=== PATIENT | male | born 1950 | race African-American/Black ===

== ENCOUNTER 2016-09-22 18:26 | Inpatient (IN) | payer MEDICARE, MEDICAID ==
--- NOTE | 2016-09-22 18:38 | ER Document Report ---
ED General - General Mode of Arrival: Ambulatory Information source: Patient - HPI Onset: Other - Refer to HPI notes Associated symptoms: Fever Similar symptoms previously: No Recently seen / treated by doctor: No <SOLOMON MCCOLLUM - Last Filed: 09/22/16 20:44> <THELMA NASH - Last Filed: 09/28/16 12:17> - General Stated Complaint: POSSIBLE ABSCESS Time Seen by Provider: 09/22/16 18:31 Notes: Patient is a 66 year old male presenting to the ED for a possible infection or abscess and fever. Patient noticed the area x1 week ago. Patient first noticed the pain to his upper back while he was sleeping and then the patient states it became painful to lay on his back. Today the patient states his pain was worse so he called 911. EMS states the patient was febrile at 108 F and had tachycardia. Patient was given 500 mL NS and some Tylenol for the pain. Patient denies any history of abscess or other skin problems. Patient has a history of hypertension and hypercholesterolemia. PCP Dr. Kim (SOLOMON MCCOLLUM) - Related Data Allergies/Adverse Reactions: No Known Allergies Allergy (Verified 09/26/16 16:32) Past Medical History - General Information source: Patient - Social History Smoking Status: Never Smoker Cigarette use (# per day): No Chew tobacco use (# tins/day): No Smoking Education Provided: No Frequency of alcohol use: None Drug Abuse: None Family History: None Patient has suicidal ideation: No Patient has homicidal ideation: No - Past Medical History Cardiac Medical History: Reports: Hx Hypercholesterolemia, Hx Hypertension Surgical Hx: Negative <SOLOMON MCCOLLUM - Last Filed: 09/22/16 20:44> Review of Systems - Review of Systems Constitutional: See HPI, Fever EENT: No symptoms reported Cardiovascular: No symptoms reported Respiratory: No symptoms reported Gastrointestinal: No symptoms reported Genitourinary: No symptoms reported Male Genitourinary: No symptoms reported Musculoskeletal: No symptoms reported Skin: See HPI Hematologic/Lymphatic: No symptoms reported Neurological/Psychological: No symptoms reported -: Yes All other systems reviewed and negative <SOLOMON MCCOLLUM - Last Filed: 09/22/16 20:44> Physical Exam <SOLOMON MCCOLLUM - Last Filed: 09/22/16 20:44> <THELMA NASH - Last Filed: 09/28/16 12:17> - Vital signs Vitals: Resp Pulse Ox 18 97 09/22/16 18:44 09/22/16 18:44 Resp Pulse Ox 18 97 09/22/16 18:44 09/22/16 18:44 (SOLOMON MCCOLLUM) - Notes Notes: GENERAL: Alert, interacts well. Mild distress. HEAD: Normocephalic, atraumatic. EYES: Appear normal. Pupils equal, round, and reactive to light. ENT: Moist mucus membranes, tongue midline. NECK: Full range of motion. Supple. Trachea midline. LUNGS: Clear to auscultation bilaterally, no wheezes, rales, or rhonchi. No respiratory distress. HEART: Regular rate and rhythm. No murmurs, gallops, or rubs. ABDOMEN: Soft, non-tender. Non-distended. Normal bowel sounds. EXTREMITIES: Moves all 4 extremities spontaneously. Normal strength. No edema. NEUROLOGICAL: Alert and oriented x3. Normal speech. No focal neurological deficits. GSC 15. PSYCH: Normal affect, normal mood. SKIN: Warm, dry, normal turgor. Large submassive abscess to the posterior back measuring 12 cm x 8 cm; there is some drainage and it extends deeply. (SOLOMON MCCOLLUM) Course - Laboratory Result Diagrams: 09/22/16 18:40 09/22/16 18:40 - Consults Dr. Jimenez Time consulted: 18:47 Consulted provider: will come to ER <SOLOMON MCCOLLUM - Last Filed: 09/22/16 20:44> - Laboratory Result Diagrams: 09/25/16 06:29 09/25/16 06:29 <THELMA NASH - Last Filed: 09/28/16 12:17> - Re-evaluation Re-evalutation: 09/22/16 19:15 Patient presents emergency department with a large abscess to his posterior back area. Which measures 12 x 8 cm. He says he noticed it when he leaned back about a week ago and has gotten progressively worse. He is febrile today and tachycardic. He has a submassive abscess with a little bit of drainage and extends deep wide and thick. Blood pressure on arrival is in the mid to high 90s. Covered him with vancomycin per surgery surgery came down I did a consult within 15 minutes of arrival and is consenting him to take him to the operating room. Patient received 2 L of fluids pain medication antibiotics laboratory evaluation workup IV fluids and the surgeon wants him to be placed observation on the surgical floor. (THELMA NASH) - Vital Signs Vital signs: Temp Pulse Resp BP Pulse Ox 98.4 F 89 16 125/86 H 98 09/25/16 16:00 09/25/16 16:00 09/25/16 16:00 09/25/16 16:00 09/25/16 16:00 - Laboratory Laboratory results interpreted by me: 09/22/16 09/22/16 09/22/16 18:40 18:40 18:40 WBC 16.0 H RBC 4.25 L Hgb 12.1 L Hct 37.5 L Seg Neutrophils % 83.0 H Lymphocytes % 5.3 L Absolute Neutrophils 13.3 H Absolute Monocytes 1.7 H VBG pH 7.43 H VBG HCO3 32.5 H Sodium 136.6 L Potassium 3.3 L Chloride 96 L Carbon Dioxide 31 H Glucose 173 H Albumin 3.4 L Urine Protein Urine Blood Urine Urobilinogen Urine Ascorbic Acid 09/22/16 19:34 WBC RBC Hgb Hct Seg Neutrophils % Lymphocytes % Absolute Neutrophils Absolute Monocytes VBG pH VBG HCO3 Sodium Potassium Chloride Carbon Dioxide Glucose Albumin Urine Protein 30 H Urine Blood MODERATE H Urine Urobilinogen 4.0 H Urine Ascorbic Acid 40 H - EKG Interpretation by Me Additional EKG results interpreted by me: 09/22/16 19:17 EKG interpreted by myself to reveal normal sinus rhythm at 97 bpm for left ventricular hypertrophy. He does have less than [address] elevation in lead to with no reciprocal changes anteriorly. I do not feel this is an acute OK. Patient is also not complaining of chest pain shortness of breath. (THELMA NASH) - Consults Dr. Jimenez Reason for consultation: 09/22/16 18:[address] Jimenez, he will come evaluate the patient. 09/22/16 19:[address] Jimenez after he evaluated the patient; he will take the patient to the OR for surgery. (SOLOMON MCCOLLUM) Critical Care Note - Critical Care Note Total time excluding time spent on procedures (mins): 45 <THELMA NASH - Last Filed: 09/28/16 12:17> Discharge <SOLOMON MCCOLLUM - Last Filed: 09/22/16 20:44> - Discharge Admitting Provider: Surgicalist Unit Admitted: Surgical Floor <THELMA NAHS - Last Filed: 09/28/16 12:17> - Discharge Clinical Impression: Acute large infected abscess back Condition: Stable Disposition: ADMITTED OBSERVATION Scribe Attestation: 09/22/16 19:14 I personally performed the services described in the documentation reviewed the documentation recorded by my scribe in my presence and it accurately and completely records my words and actions (THELMA NASH) Scribe Documentation - Scribe Written by Scribe:: Aliza Leach 09/22/2016 20:00 acting as scribe for :: Eliezer <SOLOMON MCCOLLUM - Last Filed: 09/22/16 20:44>
[2016-09-22 18:52] LABS: ABSOLUTE BASOPHILS # (AUTO) 0.1 10^3/uL (0.0-0.2); ABSOLUTE LYMPHOCYTES (AUTO) 0.9 10^3/uL (0.5-4.7); ABSOLUTE MONOCYTES (AUTO) 1.7 10^3/uL (0.1-1.4); ABSOLUTE NEUT (AUTO) 13.3 10^3/uL (1.7-8.2); BASOPHILS % (AUTO) 0.5 % (0-2); EOSINOPHILS % (AUTO) 0.3 % (0-6); HEMATOCRIT 37.5 % (37.9-51.0); HEMOGLOBIN 12.1 g/dL (13.5-17.0); HGB HCT DIFFERENCE -1.2; LYMPHOCYTES % (AUTO) 5.3 % (13-45); MEAN CORPUSCULAR HEMOGLOBIN 28.6 pg (27.0-33.4); MEAN CORPUSCULAR HGB CONC 32.4 g/dL (32.0-36.0); MEAN CORPUSCULAR VOLUME 88 fl (80-97); MONOCYTES % (AUTO) 10.9 % (3-13); RED BLOOD COUNT 4.25 10^6/uL (4.35-5.55); RED CELL DISTRIBUTION WIDTH 12.8 % (11.5-14.0)
[2016-09-22 18:58] LABS: PROTHROMBIN TIME 14.8 SEC (11.4-15.4)
[2016-09-22 19:00] LABS: VENOUS BLOOD BASE EXCESS 6.8 mmol/L; VENOUS BLOOD HCO3 32.5 mmol/L (20-32); VENOUS BLOOD PCO2 49.8 mmHg (35-63); VENOUS BLOOD PH 7.43 (7.30-7.42)
[2016-09-22] MEDS ORDERED: VANCOMYCIN HCL INJ 1000 MG VIAL IV ONE (19:12)
[2016-09-22 19:13] LABS: ALANINE AMINOTRANSFERASE 52 U/L (21-72); ALBUMIN 3.4 g/dL (3.5-5.0); ALKALINE PHOSPHATASE 110 U/L (38-126); ANION GAP 10 (5-19); ASPARTATE AMINO TRANSFERASE 30 U/L (17-59); BILIRUBIN,DIRECT 0.4 mg/dL (0.0-0.4); BILIRUBIN,TOTAL 1.3 mg/dL (0.2-1.3); BLOOD UREA NITROGEN 18 mg/dL (7-20); CARBON DIOXIDE 31 mmol/L (22-30); CHLORIDE 96 mmol/L (98-107); CREATININE RESULT 1.01 mg/dL (0.52-1.25); GLUCOSE 173 mg/dL (75-110); POTASSIUM 3.3 mmol/L (3.6-5.0); SODIUM 136.6 mmol/L (137-145); TOTAL PROTEIN 6.7 g/dL (6.3-8.2)
[2016-09-22] MEDS ORDERED: NORMAL SALINE 1000 ML 2,000 ML IV ONE (19:18)
--- NOTE | 2016-09-22 19:52 | HISTORY AND PHYSICAL E ---
History and Physical NAME: CLARICE LOPEZ : 1950 AGE: 66Y ADMITTED: 09/22/2016 ROOM: CHIEF COMPLAINT: Pains in the right back. HISTORY OF PRESENT ILLNESS: This is a 66-year-old -[place] male who has been complaining of pains along the right back and *------* some swelling at least for the past 7 days. It has gotten big and more painful and went to the ED today. Denies any previous cyst in that area. Denies any trauma. ALLERGIES: None known. SOCIAL HISTORY: Denies smoking, drinking, or recreational drug. PAST MEDICAL HISTORY: Unremarkable. FAMILY HISTORY: Noncontributory. PHYSICAL EXAMINATION: GENERAL: Well-developed, well-nourished, 66-year-old -[place] male, alert and oriented complaining of right back pain. HEENT: Neck is supple. No thyromegaly. LUNGS: Clear. HEART: Regular sinus rhythm. BACK: He has large swelling with a little purulent discharge in the middle. The mass roughly measured about 4 inches in diameter. EXTREMITIES: No edema. IMPRESSION: Abscess of the right mid back. PLAN: 1. Plan patient for IV antibiotics. 2. Hydration. 3. Incision and drainage and lavage in the OR. REVIEW OF SYSTEMS: Denies any cough or shortness of breath or chest pains. No visual or hearing problems. Denies dysuria, diarrhea, nor constipation. SKIN: There is a big mass on the right back that is firm with a small amount of purulent material in the middle. It is also noted to be quite erythematous. The rest of the systems reviewed and negative. DICTATING PHYSICIAN: ELMIRA IZQUIERDO M.D. [id number] PHY#: [id number] ID: [id number] JOB#: [id number] ACCT: [id number] cc:NO Koby ROGERS
[2016-09-22 19:53] LABS: APPEARANCE,URINE SLIGHTLY-CLOUDY; BILIRUBIN,URINE NEGATIVE (NEGATIVE); GLUCOSE, URINE NEGATIVE (NEGATIVE); KETONES,URINE NEGATIVE (NEGATIVE); LEUKOCYTE ESTERASE,URINE NEGATIVE (NEGATIVE); NITRITE,URINE NEGATIVE (NEGATIVE); PROTEIN,URINE 30 mg/dL (NEGATIVE); URINE SPECIFIC GRAVITY 1.025
[2016-09-22] MEDS ORDERED: KETAMINE HCL INJ 500 MG/10 ML VIAL ONE (20:36)
[2016-09-22] MEDS ORDERED: PROPOFOL INJ 200 MG/20 ML VIAL IV ONE (20:37)
[2016-09-22] MEDS ORDERED: MIDAZOLAM 2 MG/2 ML INJ ONE (20:37)
[2016-09-22] MEDS ORDERED: BUPIVACAINE HCL 0.25 % INJ/PF (2.5 MG/1 ML) 30 ML VIAL ONE (21:17)
[2016-09-22] MEDS ORDERED: BUPIVACAINE HCL 0.5%-EPI 1:200000 INJ/PF 30 ML VIAL ONE (21:17)
[2016-09-22] MEDS ORDERED: LIDOCAINE 1% INJ-PF (10 MG/ML) 30 ML SDV ONE ×2 (21:49→22:15)
[2016-09-22] MEDS ORDERED: OXYCODONE-ACETAMINOPHEN 5-325 MG TABLET PO PRN ×3 (21:56→23:17)
[2016-09-22] MEDS ORDERED: PROMETHAZINE HCL INJ 25 MG/1 ML VIAL IV PRN ×2 (21:56)
[2016-09-22] MEDS ORDERED: DIPHENHYDRAMINE HCL 50 MG/ML VIAL IV PRN (21:56)
[2016-09-22] MEDS ORDERED: MORPHINE SULFATE 10 MG/ML INJ IV PRN (21:56)
[2016-09-22] MEDS ORDERED: MEPERIDINE HCL/PF INJ 25 MG/1 ML DISP.SYRIN IV PRN (21:56)
[2016-09-22] MEDS ORDERED: FENTANYL CITRATE INJ/PF 100 MCG/2 ML AMPUL IV PRN ×3 (21:56)
[2016-09-22] MEDS ORDERED: LIDOCAINE 1% INJ-PF (10 MG/ML) 30 ML SDV INJ ONE (22:11)
[2016-09-22] MEDS ORDERED: VANCOMYCIN HCL INJ 1000 MG VIAL IV PRN (23:16)
[2016-09-22] MEDS ORDERED: MORPHINE SULFATE 10 MG/ML INJ INJ PRN (23:19)
[2016-09-22] MEDS ORDERED: NORMAL SALINE 1000 ML 1,000 ML IV PRN (23:19)
--- NOTE | 2016-09-22 23:22 | OPERATIVE REPORT E ---
Operative Report NAME: CLARICE LOPEZ : 1950 AGE: 66Y DATE OF SURGERY: 09/22/2016 ROOM: ED70 PREOPERATIVE DIAGNOSIS: Multiple abscesses of the right mid back. POSTOPERATIVE DIAGNOSIS: Multiple abscesses of the right mid back with abscess going down into the fascia but not beyond the fascia. OPERATION: Wide excision of the skin, subcu and fascia with measurement of 11 cm x 10.5 cm. SURGEON: ELMIRA IZQUIERDO M.D. ANESTHESIA: Local MAC. INDICATION: This is a 66-year-old male who was noted to have swelling and severe pain in the right mid back for the past several days. Actually the claims it is for about a week. He has areas of purulent discharge right in the middle but also punctate areas with purulent discharge with the circumference of about at least 8 cm. PROCEDURE: After adequate IV anesthesia, the patient was placed in the left lateral decubitus position and the right back prepped and draped in the usual sterile fashion. Xylocaine 1% was injected on the periphery of the abscess site. An incision was made about 3 cm in diameter down into the fascia; however, multiple areas of abscesses are still noted underneath and on the surrounding skin. Because of this, another area of the skin was excised, roughly measuring about 10 x 9 cm. The skin, subcu and fascia were excised primarily with the use of cautery. However, there are still areas of purulent discharge further laterally and because of this, the incision was further enlarged to at least another 2 cm. Again, the skin, subcu and fascia were then excised primarily with the use of cautery. Hemostasis was obtained with cautery. The final area excised roughly measured about 11 cm x 10.5 cm down into the muscle because most of the fascia was excised because the abscess appears to be right on the fascia or appears to be going through the fascia, but actually that looked like there was not any involvement of the muscle. Following the excisions and appears that all the abscess sites were removed, the cavity was then pulse lavaged with 3 L of saline. Further hemostasis was obtained with cautery. Next, the area was subsequently packed with partially soaked diluted Betadine solution in a Kerlix. The area was then packed with Kerlix material and a sterile dressing with ABD pads. The patient tolerated the procedure well. Needle, instruments and sponge counts were all correct. Estimated blood loss was at least 100 mL. The patient was then brought to recovery room in satisfactory condition. DICTATING PHYSICIAN: ELMIRA IZQUIERDO M.D. [id number] PHY#: [id number] ID: [id number] JOB#: [id number] ACCT: [id number] cc:ELMIRA IZQUIERDO M.D. >
[2016-09-23] MEDS ORDERED: VANCOMYCIN HCL INJ 1000 MG VIAL ONE (00:15)
[2016-09-23 05:02] LABS: ABSOLUTE BASOPHILS # (AUTO) 0.1 10^3/uL (0.0-0.2); ABSOLUTE EOSINOPHILS # (AUTO) 0.1 10^3/uL (0.0-0.6); ABSOLUTE LYMPHOCYTES (AUTO) 1.2 10^3/uL (0.5-4.7); ABSOLUTE MONOCYTES (AUTO) 1.4 10^3/uL (0.1-1.4); ABSOLUTE NEUT (AUTO) 12.1 10^3/uL (1.7-8.2); BASOPHILS % (AUTO) 0.5 % (0-2); EOSINOPHILS % (AUTO) 0.5 % (0-6); HEMATOCRIT 32.3 % (37.9-51.0); HGB HCT DIFFERENCE 0.7; LYMPHOCYTES % (AUTO) 8.1 % (13-45); MEAN CORPUSCULAR HEMOGLOBIN 29.3 pg (27.0-33.4); MEAN CORPUSCULAR HGB CONC 34.1 g/dL (32.0-36.0); MEAN CORPUSCULAR VOLUME 86 fl (80-97); MONOCYTES % (AUTO) 9.4 % (3-13); RED BLOOD COUNT 3.76 10^6/uL (4.35-5.55); RED CELL DISTRIBUTION WIDTH 12.6 % (11.5-14.0); SEGMENTED NEUTROPHILS % (AUTO) 81.5 % (42-78); WHITE BLOOD COUNT 14.8 10^3/uL (4.0-10.5)
[2016-09-23 05:22] LABS: ANION GAP 8 (5-19); BLOOD UREA NITROGEN 12 mg/dL (7-20); CALCIUM 8.6 mg/dL (8.4-10.2); CARBON DIOXIDE 28 mmol/L (22-30); CHLORIDE 103 mmol/L (98-107); CREATININE RESULT 0.78 mg/dL (0.52-1.25); GLUCOSE 163 mg/dL (75-110); POTASSIUM 3.7 mmol/L (3.6-5.0); SODIUM 139.2 mmol/L (137-145)
[2016-09-23] MEDS ORDERED: VANCOMYCIN HCL 1,000 MG in DEXTROSE 5%-WATER 250 ML IV ONE (06:00)
--- NOTE | 2016-09-23 10:37 | EKG REPORT ---
SEVERITY:- ABNORMAL ECG - SINUS RHYTHM LEFT VENTRICULAR HYPERTROPHY BORDERLINE ST ELEVATION, ANTEROLATERAL LEADS : Confirmed by: Oskar Gottlieb 23-Sep-2016 10:36:15
--- NOTE | 2016-09-23 12:42 | PROGRESS NOTE E ---
Progress Note NAME: CLARICE LOPEZ : 1950 AGE: 66Y DATE: 09/23/2016 ROOM: 401 SUBJECTIVE: The wound dressing was removed and the wound looks clean and dry. Wound VAC was then applied at a pressure of -125 mmHg pressure. PLAN: He will be continued on IV antibiotics for the next 48 hours and possibly discharged by Wednesday, the . We will make arrangements for wound VAC to be placed at home and followup at the [facility]. Awaiting culture and sensitivity for the pus sent yesterday from the OR. DICTATING PHYSICIAN: ELMIRA IZQUIERDO M.D. [id number] PHY#: [id number] ID: [id number] JOB#: [id number] ACCT: [id number] cc: >
[2016-09-23] MEDS: VANCOMYCIN HCL 1,000 MG in DEXTROSE 5%-WATER 250 ML IV SCH (17:30)
[2016-09-23] MEDS: RINGERS SOLUTION,LACTATED 1,000 ML IV PRN (17:30)
[2016-09-24] MEDS: RINGERS SOLUTION,LACTATED 1,000 ML IV PRN (06:13)
[2016-09-24] MEDS: VANCOMYCIN HCL 1,000 MG in DEXTROSE 5%-WATER 250 ML IV SCH ×3 (06:13→22:13)
[2016-09-24 06:35] LABS: CREATININE RESULT 0.79 mg/dL (0.52-1.25)
--- NOTE | 2016-09-24 08:58 | PDOC PROGRESS REPORT ---
Subjective Progress Note for:: 09/24/16 Subjective:: Feels okay. No complaints Physical Exam Vital Signs: Temp Pulse Resp BP Pulse Ox 98.6 F 88 20 110/77 96 09/23/16 23:23 09/23/16 23:23 09/23/16 23:23 09/23/16 23:23 09/23/16 23:23 Intake & Output 09/23/16 09/24/16 09/25/16 06:59 06:59 06:59 Intake Total 1079 3546 Output Total 925 1500 Balance 154 2046 Weight 82.1 kg General appearance: PRESENT: no acute distress, cooperative Cardiovascular exam: PRESENT: RRR Skin exam: PRESENT: other - Back wound with wound VAC. Mild surrounding erythema. No fluctuance. Results Laboratory Results: 09/23/16 04:44 09/24/16 05:39 09/24/16 05:39 Creatinine 0.79 Est GFR ( Amer) > 60 Est GFR (Non-Af Amer) > 60 Assessment & Plan - Diagnosis (1) Abscess of back Is this a current diagnosis for this admission?: YesPlan: Status post excisional debridement. Growing out MRSA. Continue vancomycin. Continue wound VAC. Start will switch over to clindamycin tomorrow and discharge planning.
[2016-09-24] MEDS ORDERED: (PENDING PHARMACY ID) (Simvastatin [Simvastatin] 20 MG) PO SCH (10:00)
[2016-09-24] MEDS: HYDROCHLOROTHIAZIDE 12.5 MG CAPSULE PO SCH (10:22)
[2016-09-24] MEDS ORDERED: MORPHINE SULFATE 10 MG/ML INJ IV PRN (13:46)
[2016-09-24] MEDS ORDERED: SIMVASTATIN 10 MG TABLET PO SCH (22:00)
[2016-09-25] MEDS: VANCOMYCIN HCL 1,000 MG in DEXTROSE 5%-WATER 250 ML IV SCH ×2 (06:01→14:58)
[2016-09-25 07:10] LABS: HEMATOCRIT 33.2 % (37.9-51.0); HEMOGLOBIN 11.1 g/dL (13.5-17.0); HGB HCT DIFFERENCE 0.1; MEAN CORPUSCULAR HEMOGLOBIN 29.2 pg (27.0-33.4); MEAN CORPUSCULAR HGB CONC 33.5 g/dL (32.0-36.0); MEAN CORPUSCULAR VOLUME 87 fl (80-97); RED BLOOD COUNT 3.81 10^6/uL (4.35-5.55); RED CELL DISTRIBUTION WIDTH 12.5 % (11.5-14.0); WHITE BLOOD COUNT 10.1 10^3/uL (4.0-10.5)
[2016-09-25 07:27] LABS: CREATININE RESULT 0.81 mg/dL (0.52-1.25)
[2016-09-25] MEDS: HYDROCHLOROTHIAZIDE 12.5 MG CAPSULE PO SCH (10:43)
--- NOTE | 2016-09-25 16:17 | DISCHARGE SUMMARY E ---
Discharge Summary NAME: CLARICE LOPEZ : 1950 AGE: 66Y ADMITTED: 09/22/2016 DISCHARGED: 09/25/2016 PROCEDURE DONE: Wide excision of multiple abscesses of the right mid back about 12 x 11 cm, down to the muscle, removing part of the fascia. HOSPITAL COURSE: The patient underwent excision of multiple abscesses of the right back. The next day, a wound VAC was placed. He was continued on IV vancomycin. The culture came back as MRSA. DISCHARGE PLAN: He will continue with the wound VAC and is to be followed at the [facility]. He will be continued on clindamycin 600 mg p.o. q. 8 hours for the next 2 weeks. He can have a regular diet and advised no lifting more than 15 pounds for the next 2 weeks. DICTATING PHYSICIAN: ELMIRA IZQUIERDO M.D. [id number] PHY#: [id number] ID: [id number] JOB#: [id number] ACCT: [id number] cc:ELMIRA IZQUIERDO M.D. [facility],
[2016-09-25 16:36] VITALS: BP 125/86
== END 2016-09-25 15:30 | disposition home health service (06) | DRG 572 ==
LOC: ER 18:26 → EH 19:27 → UNDOADMIN 19:27 → EH 23:37 → 4N 23:37 → EH 23:50 → 4N 23:50
PROVIDERS: ADMIT Surgery; ATTEND Surgery
PROC: 0JB70ZZ Excision of Back Subcutaneous Tissue and Fascia, Open Approach (ICD-10-PCS; principal; 2016-09-22 21:00)
DX: L02.212 Cutaneous abscess of back [any part, except buttock and flank] (principal); B95.62 Methicillin resistant Staphylococcus aureus infection as the cause of diseases classified elsewhere; I10 Essential (primary) hypertension; I51.7 Cardiomegaly; E78.00 Pure hypercholesterolemia, unspecified
CPT/HCPCS: 300; 36415; 80048; 80053; 80202; 81001; 82565; 82803; 83605; 85025; 85027; 85610; 87040; 87070; 87075; 87077; 87086; 87186; 87205; 88305; 93005; 93010; 99291; J2250; J2704; J3370; J3490; J7060; J7120

== ENCOUNTER 2016-09-26 15:53 | Emergency (ER) | payer MEDICARE, MEDICAID ==
--- NOTE | 2016-09-26 16:31 | ER Document Report ---
ED Medical Screen (RME) - General Chief Complaint: Other Stated Complaint: POSSIBLE POST OP COMPLICATIONS Time Seen by Provider: 09/26/16 16:29 Mode of Arrival: Wheelchair Information source: Patient TRAVEL OUTSIDE OF THE [place] IN LAST 30 DAYS: No - HPI Patient complains to provider of: post op complications Onset: This afternoon - pt. had recent surgery for "an infection in my back" -- and had wound vac placed. He states home health was supposed to come to his house today to change wound vac but never showed up. - Related Data Allergies/Adverse Reactions: No Known Allergies Allergy (Verified 09/22/16 18:47) Past Medical History - Past Medical History Cardiac Medical History: Reports: Hx Hypercholesterolemia, Hx Hypertension Renal/ Medical History: Denies: Hx Peritoneal Dialysis Physical Exam - Vital signs Vitals: Temp Pulse Resp BP Pulse Ox 98 F 102 H 18 133/84 H 95 09/26/16 15:58 09/26/16 15:58 09/26/16 15:58 09/26/16 15:58 09/26/16 15:58 Course - Vital Signs Vital signs: Temp Pulse Resp BP Pulse Ox 98 F 102 H 18 133/84 H 95 09/26/16 15:58 09/26/16 15:58 09/26/16 15:58 09/26/16 15:58 09/26/16 15:58
--- NOTE | 2016-09-26 18:05 | ER Document Report ---
ED General - General Chief Complaint: Other Stated Complaint: POSSIBLE POST OP COMPLICATIONS Time Seen by Provider: 09/26/16 16:39 Mode of Arrival: Wheelchair TRAVEL OUTSIDE OF THE [place] IN LAST 30 DAYS: No - HPI Patient complains to provider of: Wound VAC complication Notes: Patient coming in for wound VAC complication. Patient recently had a large abscess I&D by our surgical staff here at the hospital wound VAC was placed discharged home patient states that wound care was supposed to come out to his house today to change his wound VAC however they did not also states that his wound VAC was not working. Denies any other complaints at this time nontoxic looking - Related Data Allergies/Adverse Reactions: No Known Allergies Allergy (Verified 09/26/16 16:32) Home Medications: Current Home Medications Unobtainable [Unobtainable] 09/26/16 [History] Past Medical History - General Information source: Patient - Social History Smoking Status: Unknown if Ever Smoked Family History: Reviewed & Not Pertinent - Past Medical History Cardiac Medical History: Reports: Hx Hypercholesterolemia, Hx Hypertension Renal/ Medical History: Denies: Hx Peritoneal Dialysis Review of Systems - Review of Systems Constitutional: Other - Wound VAC evaluation EENT: No symptoms reported Cardiovascular: No symptoms reported Respiratory: No symptoms reported Gastrointestinal: No symptoms reported Genitourinary: No symptoms reported Male Genitourinary: No symptoms reported Musculoskeletal: No symptoms reported Skin: No symptoms reported Hematologic/Lymphatic: No symptoms reported Neurological/Psychological: No symptoms reported Physical Exam - Vital signs Vitals: Temp Pulse Resp BP Pulse Ox 98 F 102 H 18 133/84 H 95 09/26/16 15:58 09/26/16 15:58 09/26/16 15:58 09/26/16 15:58 09/26/16 15:58 Interpretation: Normal - General General appearance: Appears well, Alert - HEENT Head: Normocephalic, Atraumatic Eyes: Normal Pupils: PERRL - Respiratory Respiratory status: No respiratory distress Chest status: Nontender Breath sounds: Normal Chest palpation: Normal - Cardiovascular Rhythm: Regular Heart sounds: Normal auscultation Murmur: No - Abdominal Inspection: Normal Distension: No distension Bowel sounds: Normal Tenderness: Nontender Organomegaly: No organomegaly - Back Back: Normal, Nontender, Wounds - Large wound to the mid thoracic region or wound VAC is placed I was able to turn on the patient's wound VAC however was not able to obtaining suction is that the Tegaderm over the gauze was leaking - Extremities General upper extremity: Normal inspection, Nontender, Normal color, Normal ROM , Normal temperature General lower extremity: Normal inspection, Nontender, Normal color, Normal ROM , Normal temperature, Normal weight bearing. No: Nava's sign - Neurological Neuro grossly intact: Yes Cognition: Normal Orientation: AAOx4 Werner Coma Scale Eye Opening: Spontaneous Werner Coma Scale Verbal: Oriented [place] Coma Scale Motor: Obeys Commands [place] Coma Scale Total: 15 Speech: Normal Motor strength normal: LUE, RUE, LLE, RLE Sensory: Normal - Psychological Associated symptoms: Normal affect, Normal mood - Skin Skin Temperature: Warm Skin Moisture: Dry Skin Color: Normal Course - Re-evaluation Re-evalutation: 09/26/16 22:48 Discussed with surgery on-call recommended putting multiple Tegaderms around the edges of the larger Tegaderm for the wound VAC and sealing it with tincture. Did discuss with our long term care social worker construction quality control manager Jeannie states they will follow-up with the patient make sure he receives proper wound care. Otherwise no need to admit the patient for further evaluation patient was discharged home - Vital Signs Vital signs: Temp Pulse Resp BP Pulse Ox 98.6 F 79 20 123/73 97 09/26/16 18:14 09/26/16 18:14 09/26/16 18:14 09/26/16 18:14 09/26/16 18:14 Discharge - Discharge Clinical Impression: wound vac complication Disposition: HOME, SELF-CARE Additional Instructions: We contacted the surgeon who suggested the repair to be performed here in the ER for your wound VAC. I also discussed her case with our social workers here in the ER they will contact her home health support team and inquire why they did not show up today to help you with your wound VAC otherwise your examination is normal he can be discharged home I will highly recommend following up with your primary care physician on Wednesday or the wound care clinic on Wednesday. Referrals: SHERRY ADAIR MD [Primary Care Provider] - Follow up as needed
[2016-09-26 18:15] VITALS: BP 123/73
== END 2016-09-26 18:15 | disposition home or self-care (01) ==
LOC: ER 15:53
DX: L76.82 Other postprocedural complications of skin and subcutaneous tissue (principal); E78.00 Pure hypercholesterolemia, unspecified; I10 Essential (primary) hypertension
CPT/HCPCS: 99283

== ENCOUNTER 2016-09-28 17:11 | Emergency (ER) | payer MEDICARE, MEDICAID ==
--- NOTE | 2016-09-28 18:24 | ER Document Report ---
ED Medical Screen (RME) - General Chief Complaint: Other Stated Complaint: WOUND PROBLEM Time Seen by Provider: 09/28/16 18:18 Notes: This 66-year-old male patient comes emergency room complaining of not wanting to be at home alone, one could be put somewhere, and stating his wound VAC does not work. He was admitted on 09/22/2016 for an abscess on his back that was drained in the operating room. He was discharged home on 09/25/2016 he returned to the emergency room in the afternoon of 09/26/2016 social services analyst home health people were involved at that time. The major problem then seemed to be that his wound VAC had lost its he will and they address that. He returns now 2 days later same complaints plus not wanting to be at home because he is alone stating he cannot stay there. I have greeted and performed a rapid initial assessment of this patient. A comprehensive ED assessment and evaluation of the patient, analysis of test results and completion of the medical decision making process will be conducted by additional ED providers. TRAVEL OUTSIDE OF THE [place] IN LAST 30 DAYS: No - Related Data Allergies/Adverse Reactions: No Known Allergies Allergy (Verified 09/26/16 16:32) Past Medical History - Past Medical History Cardiac Medical History: Reports: Hx Hypercholesterolemia, Hx Hypertension Renal/ Medical History: Denies: Hx Peritoneal Dialysis Past Surgical History: Reports: Hx Orthopedic Surgery - back Physical Exam - Vital signs Vitals: Temp Pulse Resp BP Pulse Ox 98.0 F 94 14 155/91 H 97 09/28/16 17:25 09/28/16 17:25 09/28/16 17:25 09/28/16 17:25 09/28/16 17:25 Course - Vital Signs Vital signs: Temp Pulse Resp BP Pulse Ox 98.0 F 94 14 155/91 H 97 09/28/16 17:25 09/28/16 17:25 09/28/16 17:25 09/28/16 17:25 09/28/16 17:25
--- NOTE | 2016-09-28 20:07 | ER Document Report ---
ED Wound - General Chief Complaint: Other Stated Complaint: WOUND PROBLEM Time Seen by Provider: 09/28/16 18:18 Mode of Arrival: Ambulatory Information source: Patient Notes: This patient was hospitalized last week for incision and drainage of an abscessed area on his back. A large amount of necrotic and infected tissue was excised, leaving him with a large soft tissue defect on his back. He was fitted with a wound VAC and discharged to home 2 days ago, but apparently has had difficulty managing the wound VAC. He was seen here 2 days ago and the wound VAC was revised and reinforced so that he would function properly. He states he is unable to manage the wound VAC at home, and he has no one at home to help him. He states the home health nurses have visited him at home but have told him there is nothing they can do for him. TRAVEL OUTSIDE OF THE [place] IN LAST 30 DAYS: No - HPI Patient complains to provider of: Other - DRAINAGE FROM SURGICAL WOUND Occurred: Other - 2 DAYS Quality of pain: No pain Context: Other - POST-SURGICAL (SEE ABOVE) - Related Data Allergies/Adverse Reactions: No Known Allergies Allergy (Verified 09/26/16 16:32) Home Medications: Current Home Medications Clindamycin HCl 300 mg PO TID 09/28/16 [History] Past Medical History - General Information source: Patient - Social History Smoking Status: Never Smoker Frequency of alcohol use: None Drug Abuse: None Family History: Reviewed & Not Pertinent - Past Medical History Cardiac Medical History: Reports: Hx Hypercholesterolemia, Hx Hypertension Renal/ Medical History: Denies: Hx Peritoneal Dialysis Past Surgical History: Reports: Hx Orthopedic Surgery - back - Immunizations Hx Diphtheria, Pertussis, Tetanus Vaccination: Yes Review of Systems - Review of Systems Constitutional: No symptoms reported. denies: Chills, Fever EENT: No symptoms reported Cardiovascular: No symptoms reported Respiratory: No symptoms reported Gastrointestinal: No symptoms reported Musculoskeletal: No symptoms reported Skin: See HPI Neurological/Psychological: No symptoms reported Physical Exam - Vital signs Vitals: Temp Pulse Resp BP Pulse Ox 98.0 F 94 14 155/91 H 97 09/28/16 17:25 09/28/16 17:25 09/28/16 17:25 09/28/16 17:25 09/28/16 17:25 Interpretation: Hypertensive. No: Tachycardic, Tachypneic, Febrile - General General appearance: Appears well, Alert In distress: None - HEENT Head: Normocephalic Eyes: Normal Ears: Normal Nasal: Normal Mouth/Lips: Normal Mucous membranes: Normal - Respiratory Respiratory status: No respiratory distress - Cardiovascular Rhythm: Regular - Back Back: Wounds - LARGE SOFT TISSUE DEFECT BELOW L. SCAPULA - Skin Skin Temperature: Warm Skin Moisture: Dry Skin Color: Normal Skin Turgor: Elastic Course - Re-evaluation Re-evalutation: 09/29/16 01:13 Case discussed by phone with Dr. Martell. He suggests reinforcing the covering the wound VAC so that he can function properly. Alternatively, the wound VAC could be removed and a conventional wet to dry dressing be used instead. Patient can be seen in clinic by one of the surgical staff for early follow-up. The wound VAC system was evaluated by Rafa Gr RN, who determined that the filter screen in the wound VAC pump was clogged and therefore the system was nonfunctional. A proper screen was not available to replace the clogged 1, so the wound VAC was removed and the wound packed with gauze and covered and secured. Patient is instructed to continue his clindamycin and call the surgery clinic tomorrow for a follow-up appointment. - Vital Signs Vital signs: Temp Pulse Resp BP Pulse Ox 98.3 F 80 16 125/74 96 09/28/16 21:40 09/28/16 21:40 09/28/16 21:40 09/28/16 21:40 09/28/16 21:40 Discharge - Discharge Clinical Impression: Encounter for surgical wound dressing change, Abscess of back Condition: Stable Disposition: HOME, SELF-CARE Additional Instructions: KEEP WOUND BANDAGE IN PLACE, CLEAN, AND DRY. CONTINUE YOUR PRESENT MEDS. FOLLOW UP WITH [facility] WITHIN THE NEXT 2 DAYS, CALL TOMORROW ( SEPTEMBER 29) FOR EARLY APPOINTMENT.
[2016-09-29] MEDS ORDERED: HYDROMORPHONE HCL INJ/PF 2 MG/ML AMPULE IM ONE (00:41)
--- NOTE | 2016-09-29 09:08 | ER Document Report ---
Doctor's Note Notes: 09/29/16 09:24 As the rounding physician for our social hold patients, I have reviewed the chart, vitals, lab work. Patient has been examined and noted to be resting ocmfortably . I am awaitingsocial worker in put.
[2016-09-29] MEDS ORDERED: CLINDAMYCIN HCL 150 MG CAPSULE PO SCH (14:00)
[2016-09-29] MEDS ORDERED: CLINDAMYCIN HCL 300 MG PO SCH (14:00)
[2016-09-29] MEDS ORDERED: IBUPROFEN 600 MG TABLET PO ONE (15:58)
[2016-09-29 16:39] VITALS: BP 132/93
[2016-09-29] MEDS ORDERED: (PENDING PHARMACY ID) (Simvastatin [Simvastatin] 20 MG) PO SCH (22:00)
[2016-09-29] MEDS ORDERED: SIMVASTATIN 10 MG TABLET PO SCH (22:00)
[2016-09-30] MEDS ORDERED: (PENDING PHARMACY ID) (Losartan/Hydrochlorothiazide [Hyzaar 50-12.5 Tablet] 1 EACH) PO SCH (10:00)
[2016-09-30] MEDS ORDERED: LOSARTAN POTASSIUM 50 MG TABLET PO SCH (10:00)
[2016-09-30] MEDS ORDERED: HYDROCHLOROTHIAZIDE 12.5 MG CAPSULE PO SCH (10:00)
== END 2016-09-29 16:30 | disposition home or self-care (01) ==
LOC: ER 17:11
DX: L02.212 Cutaneous abscess of back [any part, except buttock and flank] (principal)
CPT/HCPCS: 99283; A9270 ×2; J1170

== ENCOUNTER → 2017-04-28 | Outpatient (CLI) | payer MEDICARE, MEDICAID ==
--- NOTE | 2017-04-28 15:27 | RADIOLOGY REPORT (SQ) ---
EXAM DESCRIPTION: CT ABD/PELVIS COMBO COMPLETED DATE/TIME: 04/28/2017 3:03 pm REASON FOR STUDY: R31.0 GROSS HEMATURIA R31.0 GROSS HEMATURIA COMPARISON: None. TECHNIQUE: CT scan of the abdomen and pelvis performed with and without intravenous contrast, and wi thout oral contrast. Contrasted imaging performed helical scanning technique and dynamic intravenous contrast injection. Images reviewed with lung, soft tissue, and bone windows. Reconstructed coronal a nd sagittal MPR images reviewed. Delayed images for evaluation of the urinary system also acquired. A ll images stored on PACS. All CT scanners at this facility use dose modulation, iterative reconstruction, and/or weight based d osing when appropriate to reduce radiation dose to as low as reasonably achievable (ALARA). [facility]: Dose Right [facility]: CareDose [facility]: Dose Right [facility]: Teradose 4D [facility]: [employer] CONTRAST TYPE AND DOSE: contrast/concentration: Isovue 370.00 mg/ml; Total Contrast Delivered: 74.0 ml; Total Saline Delivered: 66.0 ml RENAL FUNCTION: Creatinine 0.8 RADIATION DOSE: CT Rad equipment meets quality standard of care and radiation dose reduction techniq ues were employed. CTDIvol: 9.1 - 9.3 mGy. DLP: 1371 mGy-cm. . LIMITATIONS: None. FINDINGS: NON-CONTRASTED IMAGING: No significant renal or bladder calcifications. No other significa nt organ calcifications. POST-CONTRASTED IMAGING: LOWER CHEST: No significant findings. No nodules or infiltrates. LIVER: Normal size. No masses. No dilated ducts. SPLEEN: Normal size. No focal lesions. PANCREAS: There is a fairly well defined low density mass in the pancreatic head measuring 1.5 x 1.3 cm in diameters with CT numbers higher than would be anticipated for a simple cyst. The appearance i s suspicion for a pancreatic neoplasm. No significant calcifications. No adjacent inflammation or per ipancreatic fluid collections. Pancreatic duct not dilated. GALLBLADDER: No identified stones by CT criteria. No inflammatory changes to suggest cholecystitis. ADRENAL GLANDS: No significant masses or asymmetry. RIGHT KIDNEY AND URETER: No solid masses. No significant calcifications. No hydronephrosis or hyd roureter. LEFT KIDNEY AND URETER: No solid masses. There are 2 nonobstructing left renal calculi with the lar gest measuring 7 mm in diameters with a CT number of 568. No hydronephrosis or hydroureter. AORTA AND VESSELS: No aneurysm. No dissection. Renal arteries, SMA, celiac without stenosis. RETROPERITONEUM: No retroperitoneal adenopathy, hemorrhage or masses. BOWEL AND PERITONEAL CAVITY: No masses or inflammatory changes. No free fluid or peritoneal masses. APPENDIX: Normal. PELVIS: No mass. No free fluid. There is enlargement the prostate gland with a prostatic impression on the bladder base ABDOMINAL WALL: Small umbilical hernia is identified containing fat BONES: No significant or acute findings. OTHER: No other significant finding. IMPRESSION: Nonobstructing left renal calculi as noted above. No other renal ureteric calculi are i dentified. Fairly well defined low density mass in the pancreatic head as noted above suspicious for a pancreatic neoplasm. MRI may be of value for further evaluation. There is enlargement of the pro state gland with a prostatic impression on the bladder base. Other findings as noted above. TECHNICAL DOCUMENTATION: JOB ID: [id number] Quality ID # [id number]: Final reports with documentation of one or more dose reduction techniques (e.g., Au tomated exposure control, adjustment of the mA and/or kV according to patient size, use of iterative reconstruction technique) 2010 [employer]- All Rights Reserved Reading location - IP/workstation name: [facility]-[email or web address]
== END ==
LOC: RAD 14:15
PROVIDERS: ATTEND Urology
DX: R31.0 Gross hematuria (principal)
CPT/HCPCS: 74178; 82565

== ENCOUNTER → 2017-05-07 | Outpatient (CLI) | payer MEDICARE, MEDICAID ==
--- NOTE | 2017-05-07 10:18 | RADIOLOGY REPORT (SQ) ---
EXAM DESCRIPTION: MRI ABDOMEN COMBO COMPLETED DATE/TIME: 05/07/2017 8:19 am REASON FOR STUDY: PANCREATIC MASS (K86.9) K86.9 DISEASE OF PANCREAS, UNSPECIFIED COMPARISON: CT abdomen pelvis 04/28/2017 TECHNIQUE: Multiplanar multisequence imaging performed without and with contrast including sagittal, axial and coronal T2, axial T1, axial gradient fat sat T1, axial, sagittal and coronal fat sat T1 po st contrast. CONTRAST TYPE AND DOSE: 20 mL Prohance. RENAL FUNCTION: Creatinine 0.9 LIMITATIONS: Mild motion artifact FINDINGS: LIVER: Normal size. No masses. Less than 5 mm cyst posterior right lobe liver near the in ferior vena cava. No dilated ducts. CBD normal. SPLEEN: Normal size. No focal lesions. PANCREAS: There is a septated cyst, just ventral to the distal common bile duct in the pancreatic hea d. This measures 2 cm craniocaudad by 1.5 cm AP x 1.5 cm transverse. Minimal contrast enhancement o f septations. Remainder of the pancreas is otherwise unremarkable. No pancreatic ductal dilatation. No peripancre atic inflammatory change. GALLBLADDER: No masses. No stones. No gallbladder wall thickening or pericholecystic fluid. ADRENAL GLANDS: No significant masses or asymmetry. RIGHT KIDNEY AND URETER: No masses. No hydronephrosis. LEFT KIDNEY AND URETER: No masses. No hydronephrosis. Left lower pole intrarenal nonobstructive ston es seen on CT 04/28/2017 are difficult to visualize on today's MRI exam AORTA AND VESSELS: No aneurysm. No dissection. Renal arteries, SMA, celiac without stenosis. RETROPERITONEUM: No retroperitoneal adenopathy, hemorrhage or masses. BOWEL: Not well seen ABDOMINAL WALL AND PERITONEUM: No hernias. No free fluid. BONES: No acute or significant findings. OTHER: No other significant finding. IMPRESSION: Septated cyst, ventral aspect pancreatic head anterior to the common bile duct. This me asures 2 cm craniocaudad by 1.5 cm AP x 1.5 cm transverse. Although this could represent a small ania ign cyst, cystic neoplasm could not be excluded. TECHNICAL DOCUMENTATION: JOB ID: [id number] [employer]- All Rights Reserved Reading location - IP/workstation name: [facility]
== END ==
LOC: RAD 06:48
PROVIDERS: ATTEND Urology
DX: K86.9 Disease of pancreas, unspecified (principal)
CPT/HCPCS: 82565; 74183; A9576

== ENCOUNTER 2017-06-21 13:59 | Emergency (ER) | payer MEDICAID, MEDICARE ==
[2017-06-21] MEDS ORDERED: LEVETIRACETAM 1000 MG/NACL-ISO 1,000 MG/100 ML RTUPB IV ONE (15:13)
[2017-06-21 15:41] LABS: ABSOLUTE EOSINOPHILS # (AUTO) 0.1 10^3/uL (0.0-0.6); ABSOLUTE LYMPHOCYTES (AUTO) 1.3 10^3/uL (0.5-4.7); ABSOLUTE MONOCYTES (AUTO) 0.3 10^3/uL (0.1-1.4); ABSOLUTE NEUT (AUTO) 2.7 10^3/uL (1.7-8.2); BASOPHILS % (AUTO) 1.1 % (0-2); EOSINOPHILS % (AUTO) 1.6 % (0-6); HEMATOCRIT 44.3 % (37.9-51.0); HEMOGLOBIN 14.8 g/dL (13.5-17.0); LYMPHOCYTES % (AUTO) 29.1 % (13-45); MEAN CORPUSCULAR HEMOGLOBIN 29.6 pg (27.0-33.4); MEAN CORPUSCULAR HGB CONC 33.4 g/dL (32.0-36.0); MEAN CORPUSCULAR VOLUME 89 fl (80-97); MONOCYTES % (AUTO) 7.7 % (3-13); PLATELET COUNT 279 10^3/uL (150-450); RED BLOOD COUNT 5.01 10^6/uL (4.35-5.55); RED CELL DISTRIBUTION WIDTH 13.3 % (11.5-14.0); SEGMENTED NEUTROPHILS % (AUTO) 60.5 % (42-78); TOTAL CELLS COUNTED % (AUTO) 100 %; WHITE BLOOD COUNT 4.4 10^3/uL (4.0-10.5)
[2017-06-21 15:48] LABS: APPEARANCE,URINE CLEAR; BILIRUBIN,URINE NEGATIVE (NEGATIVE); COLOR,URINE STRAW; GLUCOSE, URINE NEGATIVE (NEGATIVE); KETONES,URINE NEGATIVE (NEGATIVE); LEUKOCYTE ESTERASE,URINE NEGATIVE (NEGATIVE); NITRITE,URINE NEGATIVE (NEGATIVE); PROTEIN,URINE NEGATIVE (NEGATIVE); URINE SPECIFIC GRAVITY 1.008; UROBILINOGEN,URINE NEGATIVE mg/dL (<2.0)
[2017-06-21 16:03] LABS: ALANINE AMINOTRANSFERASE 64 U/L (21-72); ALBUMIN 4.7 g/dL (3.5-5.0); ALCOHOL < 10 mg/dL (NONE DETECTED); ALKALINE PHOSPHATASE 60 U/L (38-126); ANION GAP 7 (5-19); ASPARTATE AMINO TRANSFERASE 54 U/L (17-59); BILIRUBIN,DIRECT 0.3 mg/dL (0.0-0.4); BILIRUBIN,TOTAL 0.8 mg/dL (0.2-1.3); BLOOD UREA NITROGEN 12 mg/dL (7-20); CALCIUM 9.8 mg/dL (8.4-10.2); CARBON DIOXIDE 37 mmol/L (22-30); CHLORIDE 97 mmol/L (98-107); GLUCOSE 101 mg/dL (75-110); SODIUM 141.3 mmol/L (137-145); TOTAL PROTEIN 8.1 g/dL (6.3-8.2)
--- NOTE | 2017-06-21 16:08 | ER Document Report ---
ED General - General Chief Complaint: Probable Seizure Stated Complaint: POSSIBLE SEZIURE Time Seen by Provider: 06/21/17 15:09 Information source: Patient TRAVEL OUTSIDE OF THE [place] IN LAST 30 DAYS: No - HPI Notes: Note history is somewhat limited as the patient appears postictal. I was called by the nursing staff to evaluate the patient after he had what appears to be a complex partial seizure. Currently he attends step on the right side, lifted his arm stared off. Small amount of shaking in the right side. There is no secondary generalization. Lasted less than a minute. Patient had originally been brought to the hospital after "passing out" for 5 minutes and being altered. No report of recent or remote trauma. Patient himself does not have known history of seizures. Denies any drug or alcohol abuse but again is confused and history is somewhat difficult. No other modifying factors, no other associated symptoms, no other provocative or palliative factors. - Related Data Allergies/Adverse Reactions: No Known Allergies Allergy (Verified 09/26/16 16:32) Past Medical History - Social History Smoking Status: Current Every Day Smoker Chew tobacco use (# tins/day): No Frequency of alcohol use: None Drug Abuse: None Family History: Reviewed & Not Pertinent Patient has suicidal ideation: No Patient has homicidal ideation: No - Past Medical History Cardiac Medical History: Reports: Hx Hypercholesterolemia, Hx Hypertension Renal/ Medical History: Denies: Hx Peritoneal Dialysis Past Surgical History: Reports: Hx Orthopedic Surgery - back - Immunizations Hx Diphtheria, Pertussis, Tetanus Vaccination: Yes Review of Systems - Review of Systems Notes: ROS limited by clinical condition Physical Exam - Vital signs Vitals: Temp Pulse Resp BP Pulse Ox 98.4 F 86 16 145/79 H 95 06/21/17 14:09 06/21/17 14:09 06/21/17 14:09 06/21/17 14:09 06/21/17 14:09 - Notes Notes: General: Well developed . HEENT: Normocephalic, atraumatic. Pupils equal round reactive to light. No JVD. Chest: No trauma. Respiratory: Good air exchange, normal excursion. Cardiac: Regular rhythm. No murmurs or gallops. Abdomen: Soft, benign. Nondistended. Nontender. Back: No asymmetry or gross abnormality. Motor: Grossly normal power and tone. Neurologic: Alert to person only, based simple commands.. Cranial nerves II-12 are intact. Sensation intact. No clonus Vascular: Well perfused. Normal peripheral pulses. Skin: No petechiae or purpura. Course - Re-evaluation Re-evalutation: 06/21/17 16:07 67-year-old male presents with what sounds to be possible seizure, complex partial versus other. I have reviewed his records and there is some recent MRI report that shows a pancreatic head mass. Given this information, to be concerned over the potential for underlying intracranial metastases or malignancy. Consider underlying infectious, structural, toxic or other etiology. Patient was loaded with IV Keppra, will perform serial neuro exams, check basic labs, CT and reassess. Patient signed out to Dr. Perez pending further workup - Vital Signs Vital signs: Temp Pulse Resp BP Pulse Ox 98.4 F 86 16 145/79 H 95 06/21/17 14:09 06/21/17 14:09 06/21/17 14:09 06/21/17 14:09 06/21/17 14:09 - Laboratory Result Diagrams: 06/21/17 15:31 06/21/17 15:31 Laboratory results interpreted by me: 06/21/17 06/21/17 15:27 15:31 Chloride 97 L Carbon Dioxide 37 H Urine Blood MODERATE H Urine Ascorbic Acid 40 H
--- NOTE | 2017-06-21 16:14 | RADIOLOGY REPORT (SQ) ---
EXAM DESCRIPTION: CT HEAD WITHOUT COMPLETED DATE/TIME: 06/21/2017 4:05 pm REASON FOR STUDY: AMS, new onset seizure COMPARISON: None. TECHNIQUE: Axial images acquired through the brain without intravenous contrast. Images reviewed wi th bone, brain and subdural windows. Additional sagittal and coronal reconstructions were generated. Images stored on PACS. All CT scanners at this facility use dose modulation, iterative reconstruction, and/or weight based d osing when appropriate to reduce radiation dose to as low as reasonably achievable (ALARA). [facility]: Dose Right [facility]: CareDose [facility]: Dose Right [facility]: Teradose 4D [facility]: [employer] RADIATION DOSE: CT Rad equipment meets quality standard of care and radiation dose reduction techniq ues were employed. CTDIvol: 53.2 mGy. DLP: 964 mGy-cm. mGy. LIMITATIONS: None. FINDINGS: VENTRICLES: Normal size and contour. CEREBRUM: No masses. No hemorrhage. No midline shift. No evidence for acute infarction. Normal gra y/white matter differentiation. No areas of low density in the white matter. CEREBELLUM: No masses. No hemorrhage. No alteration of density. No evidence for acute infarction. EXTRAAXIAL SPACES: No fluid collections. No masses. ORBITS AND GLOBE: No intra- or extraconal masses. Normal contour of globe without masses. CALVARIUM: No fracture. PARANASAL SINUSES: No fluid or mucosal thickening. SOFT TISSUES: No mass or hematoma. OTHER: No other significant finding. IMPRESSION: NORMAL BRAIN CT WITHOUT CONTRAST. EVIDENCE OF ACUTE STROKE: NO. COMMENT: Quality ID # 436: Final reports with documentation of one or more dose reduction techniques (e.g., Automated exposure control, adjustment of the mA and/or kV according to patient size, use of iterative reconstruction technique) TECHNICAL DOCUMENTATION: JOB ID: [id number] [employer]- All Rights Reserved Reading location - IP/workstation name: [facility]-[email or web address]
[2017-06-21 16:26] LABS: URINE AMPHETAMINES SCREEN NEGATIVE; URINE BARBITURATES SCREEN NEGATIVE; URINE BENZODIAZEPINES SCREEN NEGATIVE; URINE COCAINE SCREEN NEGATIVE; URINE MARIJUANA (THC) SCREEN NEGATIVE; URINE METHADONE SCREEN NEGATIVE; URINE PHENCYCLIDINE SCREEN NEGATIVE
[2017-06-21 20:08] VITALS: BP 134/94
== END 2017-06-21 20:29 | disposition home or self-care (01) ==
LOC: ER 13:59
DX: R29.818 Other symptoms and signs involving the nervous system (principal); R41.0 Disorientation, unspecified; I10 Essential (primary) hypertension; F17.200 Nicotine dependence, unspecified, uncomplicated
CPT/HCPCS: 99285; 96374; 36415; 80307 ×2; 83735; 85025; 80053; 81001; 70450; J1953

== ENCOUNTER → 2017-06-30 | Outpatient (CLI) | payer MEDICARE, MEDICAID ==
--- NOTE | 2017-06-30 11:37 | RADIOLOGY REPORT (SQ) ---
EXAM DESCRIPTION: MRI HEAD WITHOUT COMPLETED DATE/TIME: 06/30/2017 10:43 am REASON FOR STUDY: R56.9 UNSPECIFIED CONVULSIONS R56.9 UNSPECIFIED CONVULSIONS COMPARISON: CT brain 06/21/2017 TECHNIQUE: Multiplanar imaging includes non-contrasted T1, T2, FLAIR, and diffusion with ADC map seq uences. Images stored on PACS. LIMITATIONS: None. FINDINGS: ANATOMY: No anomalies. Normal vascular flow voids. Pituitary fossa normal. CSF SPACES: Normal in size and contour. No hemorrhage. CEREBRUM: Sulci and gyri normal in size and contour. Normal white matter signal on FLAIR imaging. No evidence of hemorrhage, mass, or extraaxial fluid collection. POSTERIOR FOSSA: No signal alteration. No hemorrhage. No edema, masses or mass effect. Internal marcos tory canals, cerebello-pontine angles, mastoids normal. DIFFUSION IMAGING: Negative for acute or sub-acute infarction. ORBITS: No masses. Globes normal. PARANASAL SINUSES: No fluid levels. Mucosa normal. OTHER: No other significant finding. IMPRESSION: NORMAL MRI OF THE BRAIN WITHOUT INTRAVENOUS GADOLINIUM CONTRAST. EVIDENCE OF ACUTE STROKE: NO. TECHNICAL DOCUMENTATION: JOB ID: [id number] [employer]- All Rights Reserved Reading location - IP/workstation name: [email or web address]
== END ==
LOC: RAD 10:22
PROVIDERS: ATTEND Family Medicine
DX: R56.9 Unspecified convulsions (principal)
CPT/HCPCS: 70551